=== PATIENT | female | born 1965 | race Caucasian/White ===

== ENCOUNTER 2019-10-20 07:10 | Inpatient (IN) | payer BC, OTHER ==
[~2019-10-20] VITALS: Ht 157.5 cm; Wt 49.7 kg
--- NOTE | 2019-10-20 07:30 | NUR ---
THIS IS A 54 YO F W/ C/O TIGHT CP SINCE 0100 THIS MORNING. PT STATES THAT SHE WAS LAYING DOWN WHEN IT BECAME SEVERE. CURRENTLY 04/30. C/O SOB AND NAUSEA. HX [place] 2 YEARS AGO. PTS RESPIRATIONS EVEN AND UNLABORED. NADN. EKG DONE AND GIVEN TO . HOOKED UP TO CARDIAC MONITORS. DENIES WEARING O2 AT HOME. CURRENTLY ON 4L 93%, HYPERTENSIVE. WILL CONTINUE TO MONITOR. CALL LIGHT IN REACH. DENIES FURTHER NEEDS AT THIS TIME.
--- NOTE | 2019-10-20 07:43 | NUR ---
SARA BENNETT IN ROOM FOR EVAL.
[2019-10-20] MEDS ORDERED: MORPHINE SULFATE 4 MG/ML, 1ML IVPush PRN (08:00)
[2019-10-20] MEDS ORDERED: SODIUM CHLORIDE FLUSH 10ML SYR IVF ONE (08:00)
[2019-10-20] MEDS ORDERED: ONDANSETRON 2MG/ML, 2ML IVPush ONE (08:00)
--- NOTE | 2019-10-20 08:05 | NUR ---
LAB AND RAD IN ROOM.
[2019-10-20 08:13] LABS: BASOPHILS # (AUTO) 0.04 x10^3/uL (0-0.1); BASOPHILS % (AUTO) 0 % (0-1); EOSINOPHILS # (AUTO) 0.25 x10^3/uL (0-0.4); EOSINOPHILS % (AUTO) 2 % (1-7); LYMPHOCYTES # (AUTO) 1.27 x10^3/uL (1-3.4); LYMPHOCYTES % (AUTO) 9 % (22-44); MD NO; MEAN CORPUSCULAR HEMOGLOBIN 30.5 pg (27.0-34.8); MEAN CORPUSCULAR HGB CONC 33.2 g/dL (32.4-35.8); MEAN CORPUSCULAR VOLUME 91.7 fL (80-100); MONOCYTES % (AUTO) 4 % (2-9); NEUTROPHILS # (AUTO) 11.85 x10^3/uL (1.8-6.8); NEUTROPHILS % (AUTO) 85 % (42-75); PLATELET COUNT 304 x10^3/uL (130-400); RED BLOOD COUNT 4.96 x10^6/uL (3.82-5.3); RED CELL DISTRIBUTION WIDTH 14.2 % (9.6-15.2)
[2019-10-20 08:25] LABS: ALANINE AMINOTRANSFERASE 15 U/L (12-78); ALBUMIN 3.3 g/dL (3.4-5.0); ANION GAP 7 mmol/L (5-15); CREATININE 0.87 mg/dL (0.55-1.02)
[2019-10-20] MEDS ORDERED: LORazepam 2 MG/ML, 1ML IVPush ONE (08:30)
[2019-10-20] MEDS ORDERED: ASPIRIN 81 MG TABLET CHEW PO ONE (08:30)
--- NOTE | 2019-10-20 08:34 | NUR ---
PT REFUSED PIV AFTER 1 ATTEMPT. AGREED TO US IV. TECH TO START US IV.
[2019-10-20 08:36] LABS: CHLORIDE 112 mmol/L (98-107)
[2019-10-20 08:38] LABS: ALKALINE PHOSPHATASE 180 U/L (45-117); BILIRUBIN,TOTAL 0.6 mg/dL (0.2-1.0); TOTAL PROTEIN 7.1 g/dL (6.4-8.2)
[2019-10-20 08:40] LABS: TROPONIN I 0.094 ng/mL (0.000-0.045)
--- NOTE | 2019-10-20 08:47 | NUR ---
HOLD ASPIRIN PER SARA BENNETT. PT RECEIVED 324 MG FROM [facility].
--- NOTE | 2019-10-20 08:56 | NUR ---
UNIT COORDINATOR IN ROOM FOR US IV.
[2019-10-20] MEDS ORDERED: MORPHINE SULFATE 4 MG/ML, 1ML ONE (09:02)
[2019-10-20] MEDS ORDERED: ONDANSETRON 2MG/ML, 2ML ONE (09:02)
--- NOTE | 2019-10-20 09:08 | NUR ---
PT MEDICATED PER EMAR. REFUSING ATIVAN AT THIS TIME.
--- NOTE | 2019-10-20 09:27 | NUR ---
PT UPDATED ON POC FOR ADMIT. PT WAITING TO HEAR BACK FROM [facility] TO POSTPONE EVICTION AND WILL DECIDE IF SHE WILL STAY OR NOT.
--- NOTE | 2019-10-20 09:51 | NUR ---
PT TO RAD
--- NOTE | 2019-10-20 10:12 | NUR ---
PT BACK FROM RAD
--- NOTE | 2019-10-20 10:35 | NUR ---
ALL TESTS RSEULTED. PT IS UP FOR RECHECK AT THIS TIME.
[2019-10-20] MEDS ORDERED: OMNIPAQUE 350 MG/ML, 100ML BOTTLE ONE (10:39)
[2019-10-20] MEDS ORDERED: ENOXAPARIN 40 MG/0.4 ML SQ SCH (11:30)
[2019-10-20] MEDS ORDERED: FUROSEMIDE 20 MG/2 ML IV ONE ×2 (11:30→17:30)
[2019-10-20] MEDS ORDERED: NITROGLYCERIN OINT 2%, 1GM TP ONE ×2 (11:30→11:38)
[2019-10-20] MEDS ORDERED: ACETAMINOPHEN 325 MG TABLET PO PRN (11:30)
[2019-10-20] MEDS ORDERED: ENOXAPARIN 40 MG/0.4 ML ONE (11:38)
[2019-10-20] MEDS ORDERED: FUROSEMIDE 40 MG/4 ML ONE (11:38)
--- NOTE | 2019-10-20 11:44 | NUR ---
PT MEDICATED PER EMAR. NITRO NOT GIVEN DUE TO NO CURRENT CHEST PAIN.
--- NOTE | 2019-10-20 11:50 | NUR ---
REPORT GIVEN TO JOHNATHAN GOLDBERG. PT READY FOR TRANSFER.
[2019-10-20] MEDS ORDERED: NITROGLYCERIN SINGLE TAB 0.4 MG SL PRN (12:00)
[2019-10-20] MEDS ORDERED: NICOTINE 14MG/24 HR PATCH.TD24 TD ONE (12:00)
[2019-10-20] MEDS ORDERED: hydrALAzine 20 MG/ML, 1ML IV PRN (12:00)
[2019-10-20 13:35] VITALS: BP_SYST 122; BP_SYST 146; BP_DIAS 75; BP_DIAS 82
[2019-10-20 17:11] LABS: TROPONIN I 0.286 ng/mL (0.000-0.045)
[2019-10-20] MEDS ORDERED: HEPARIN 25,000 UNITS/250ML PMX 250 ML IV PRN (17:30)
[2019-10-20] MEDS ORDERED: HEPARIN 5,000 UNITS/ML, 1ML IV PRN (17:30)
[2019-10-20] MEDS: CARVEDILOL 6.25 MG TABLET PO SCH (17:59)
[2019-10-20] MEDS: HEPARIN 5,000 UNITS/ML, 1ML IV ONE ×2 (17:59→20:08)
[2019-10-20] MEDS ORDERED: METOPROLOL TARTRATE 25 MG TABLET PO SCH (18:00)
[2019-10-20 19:28] VITALS: BP 111/63
[2019-10-20] MEDS ORDERED: LISINOPRIL 10 MG TABLET PO SCH (21:00)
[2019-10-20] MEDS ORDERED: ATORVASTATIN 40 MG TABLET PO SCH (21:00)
[2019-10-20 22:49] LABS: TROPONIN I 0.215 ng/mL (0.000-0.045)
[2019-10-21 01:01] VITALS: BP 117/58
[2019-10-21 02:44] LABS: BASOPHILS # (AUTO) 0.06 x10^3/uL (0-0.1); BASOPHILS % (AUTO) 1 % (0-1); EOSINOPHILS # (AUTO) 0.13 x10^3/uL (0-0.4); EOSINOPHILS % (AUTO) 2 % (1-7); LYMPHOCYTES # (AUTO) 1.52 x10^3/uL (1-3.4); LYMPHOCYTES % (AUTO) 21 % (22-44); MD NO; MEAN CORPUSCULAR HEMOGLOBIN 30.2 pg (27.0-34.8); MEAN CORPUSCULAR HGB CONC 32.8 g/dL (32.4-35.8); MEAN CORPUSCULAR VOLUME 91.9 fL (80-100); MEAN PLATELET VOLUME 8.6 fL (7.4-10.4); MONOCYTES # (AUTO) 0.48 x10^3/uL (0.2-0.8); MONOCYTES % (AUTO) 7 % (2-9); NEUTROPHILS # (AUTO) 5.08 x10^3/uL (1.8-6.8); NEUTROPHILS % (AUTO) 70 % (42-75); PLATELET COUNT 269 x10^3/uL (130-400); RED BLOOD COUNT 4.59 x10^6/uL (3.82-5.3); RED CELL DISTRIBUTION WIDTH 14.4 % (9.6-15.2)
[2019-10-21 02:49] LABS: ANION GAP 7 mmol/L (5-15); CALCIUM 8.2 mg/dL (8.5-10.1); CHLORIDE 104 mmol/L (98-107); CREATININE 1.11 mg/dL (0.55-1.02)
[2019-10-21] MEDS ORDERED: ASPIRIN 81 MG TABLET EC PO SCH (06:00)
[2019-10-21] MEDS: CARVEDILOL 6.25 MG TABLET PO SCH (06:07)
[2019-10-21 06:08] VITALS: BP 138/71
[2019-10-21 07:01] VITALS: BP 98/59
[2019-10-21] MEDS ORDERED: REGADENOSON 0.4 MG/5 ML SYRINGE ONE (08:37)
[2019-10-21] MEDS ORDERED: LORazepam 2 MG/ML, 1ML IVPush PRN (09:00)
== END 2019-10-21 11:54 | disposition left against medical advice (07) | DRG 291 ==
LOC: ED 10:27 → EDIP 11:25 → 5SO 12:01
PROVIDERS: ADMIT Internal Medicine Infectious Disease; ATTEND Hospitalist
DX: I11.0 Hypertensive heart disease with heart failure (principal); J96.01 Acute respiratory failure with hypoxia; I42.9 Cardiomyopathy, unspecified; I50.1 Left ventricular failure, unspecified; F15.90 Other stimulant use, unspecified, uncomplicated; F17.200 Nicotine dependence, unspecified, uncomplicated; R07.2 Precordial pain; Z53.29 Procedure and treatment not carried out because of patient's decision for other reasons; F41.1 Generalized anxiety disorder; J44.9 Chronic obstructive pulmonary disease, unspecified; Z82.49 Family history of ischemic heart disease and other diseases of the circulatory system; Z86.718 Personal history of other venous thrombosis and embolism; I25.2 Old myocardial infarction; Z91.19 Patient's noncompliance with other medical treatment and regimen
CPT/HCPCS: 36415; 71045; 71275; 78452; 80048; 80053; 83880; 84484; 85025; 85379; 85520; 93005; 93017; 93306; 93356; 96372; 96374; 96375; 99285; G0378; J1644; J1650; J2405; J2785; Q9967; A9502; J0360; J1940; J2060; J2270

== ENCOUNTER 2019-11-29 05:33 | Emergency (ER) | payer SELFPAY ==
[~2019-11-29] VITALS: Ht 157.5 cm; Wt 47.7 kg
--- NOTE | 2019-11-29 05:49 | NUR ---
Pt BIB [facility] for anxiety, left sided CP and SOB. Pt has had panic attack episodes similiar to this before and states that a medicine that helps anxiety also helps her CP. Pt has hx of GA's, CHF and asthma. Per paving supervisor, pt did not receive aspirin [employer] d/t almost choking on the tablets from anxiety. Pt on full monitors. Call light within reach.
[2019-11-29] MEDS ORDERED: ALBU5SOL6 INH (05:52)
--- NOTE | 2019-11-29 06:00 | NUR ---
Warm blanket and oral swabs provided.
--- NOTE | 2019-11-29 06:42 | NUR ---
Assist RN at bedside for US PIV placement.
--- NOTE | 2019-11-29 06:55 | NUR ---
Unable obtain PIV access with IV x2 attempts
--- NOTE | 2019-11-29 06:57 | NUR ---
RECEIVED REPORT FROM RICHARD GOLDBERG, PLAN OF CARE DISCUSSED
[2019-11-29] MEDS ORDERED: SODIUM CHLORIDE FLUSH 10ML SYR IVF ONE (07:00)
[2019-11-29] MEDS ORDERED: ALBUTEROL SULFATE 2.5 MG/3 ML ONE (07:33)
--- NOTE | 2019-11-29 07:40 | NUR ---
IV STARTED IN RIGHT AC BY TORRIE GOLDBERG, PLAN OF CARE DISCUSSED
--- NOTE | 2019-11-29 07:46 | NUR ---
RT IN ROOM GIVING A TREATMENT
[2019-11-29 07:57] LABS: BASOPHILS # (AUTO) 0.03 x10^3/uL (0-0.1); BASOPHILS % (AUTO) 0 % (0-1); EOSINOPHILS # (AUTO) 0.12 x10^3/uL (0-0.4); EOSINOPHILS % (AUTO) 2 % (1-7); LYMPHOCYTES # (AUTO) 1.07 x10^3/uL (1-3.4); LYMPHOCYTES % (AUTO) 14 % (22-44); MD NO; MEAN CORPUSCULAR HEMOGLOBIN 29.5 pg (27.0-34.8); MEAN CORPUSCULAR VOLUME 89.6 fL (80-100); MEAN PLATELET VOLUME 8.4 fL (7.4-10.4); MONOCYTES # (AUTO) 0.38 x10^3/uL (0.2-0.8); MONOCYTES % (AUTO) 5 % (2-9); NEUTROPHILS # (AUTO) 6.29 x10^3/uL (1.8-6.8); NEUTROPHILS % (AUTO) 80 % (42-75); PLATELET COUNT 213 x10^3/uL (130-400); RED BLOOD COUNT 4.53 x10^6/uL (3.82-5.3); RED CELL DISTRIBUTION WIDTH 13.2 % (9.6-15.2)
[2019-11-29] MEDS ORDERED: ALBUTEROL SULFATE 2.5 MG/3 ML NPPB ONE (08:00)
[2019-11-29 08:08] LABS: ALANINE AMINOTRANSFERASE 20 U/L (12-78); ALBUMIN 3.2 g/dL (3.4-5.0); ANION GAP 9 mmol/L (5-15); CALCIUM 7.9 mg/dL (8.5-10.1); CHLORIDE 113 mmol/L (98-107); CREATININE 0.83 mg/dL (0.55-1.02)
[2019-11-29 08:11] LABS: ALKALINE PHOSPHATASE 145 U/L (45-117); BILIRUBIN,TOTAL 0.7 mg/dL (0.2-1.0); TOTAL PROTEIN 6.7 g/dL (6.4-8.2)
[2019-11-29] MEDS ORDERED: LORazepam 2 MG/ML, 1ML IVPush ONE (08:30)
[2019-11-29] MEDS ORDERED: OMNIPAQUE 350 MG/ML, 100ML BOTTLE ONE (08:30)
[2019-11-29] MEDS ORDERED: LORazepam 2 MG/ML, 1ML ONE (08:32)
--- NOTE | 2019-11-29 09:08 | NUR ---
PT SLEEPING, RESP EVEN AND UNLABORED.
--- NOTE | 2019-11-29 09:51 | NUR ---
REPORT TO DIAN GOLDBERG, PLAN OF CARE DISCUSSED
--- NOTE | 2019-11-29 10:00 | NUR ---
REPORT FROM WANDY RN VSS ON [employer]ES SPECIAL AGENT ON 3L NC (ATIVAN?) PATRIZIA CP/MICHEL (REPORTS BREATHING TX EFFECTIVE. UPDATED ON POC-ADMIT. PATIENT REFUSING-PROVIDER TO SPEAK TO PATIENT
[2019-11-29 10:18] VITALS: BP 151/70
[2019-11-29] MEDS ORDERED: ASPIRIN 81 MG TABLET CHEW PO ONE (10:30)
--- NOTE | 2019-11-29 10:40 | NUR ---
PROVIDER WOULD LIKE TO ADMIT PATIENT FOR CARDIAC WORKUP PATIENT REFUSING AND IN A+OX4/UNDERSTANDS CONDITION-AMA PAPERWORK SIGNED
== END 2019-11-29 11:15 | disposition left against medical advice (07) ==
LOC: ED 10:16
DX: L03.012 Cellulitis of left finger (principal); R07.89 Other chest pain; R06.03 Acute respiratory distress; J90 Pleural effusion, not elsewhere classified; R79.89 Other specified abnormal findings of blood chemistry; J44.9 Chronic obstructive pulmonary disease, unspecified; I25.2 Old myocardial infarction
CPT/HCPCS: 36415; 71045; 71275; 80053; 83880; 84484; 85025; 93005; 94640; 96374; 99285; J2060; Q9967

== ENCOUNTER 2020-08-06 15:15 | Emergency (ER) | payer OTHER ==
[~2020-08-06] VITALS: Ht 157.5 cm; Wt 46.3 kg
[~2020-08-06 15:15] MED LIST: ALBU5SOL6 INH
[2020-08-06 15:25] VITALS: BP 191/108
--- NOTE | 2020-08-06 17:19 | NUR ---
N/A for XRAY x 2
--- NOTE | 2020-08-06 18:41 | NUR ---
NO ANSWER IN LOBBY
== END 2020-08-06 18:44 ==
LOC: ED 15:30
DX: R05 Cough (principal); R00.0 Tachycardia, unspecified; I49.3 Ventricular premature depolarization; I51.7 Cardiomegaly; R94.31 Abnormal electrocardiogram [ECG] [EKG]
CPT/HCPCS: 93005; 99283

== ENCOUNTER 2020-08-10 02:05 | Emergency (ER) | payer SELFPAY ==
[~2020-08-10] VITALS: Ht 157.5 cm; Wt 47.0 kg
[2020-08-10] MEDS ORDERED: SODIUM CHLORIDE FLUSH 10ML SYR IVF ONE (02:30)
[2020-08-10] MEDS ORDERED: NITROGLYCERIN OINT 2%, 1GM TP ONE ×2 (02:30→02:51)
[2020-08-10] MEDS ORDERED: methylPREDNISolone SOD SUCC 125 MG/2 ML IV ONE (02:30)
[2020-08-10] MEDS ORDERED: PLEASE ENTER HEIGHT AND WEIGHT MC SCH (02:30)
[2020-08-10] MEDS ORDERED: ALBUTEROL/IPRATROPIUM 2.5MG/0.5MG, 3 ML NPPB ONE (02:30)
--- NOTE | 2020-08-10 02:50 | NUR ---
PT BIB [facility] WITH HISTORY OF CHF, [place], COPD EXACERBATION. PT WITH HISTORY OF INTUBATION. PT HAVING LABORED BREATHING AND DIFFICULTY BREATHING TONIGHT. PT CHANGED INTO GOWN AND ATTACHED TO VS AND CARDIAC MONITORS. PT FOUND TO BE HYPERTENSIVE WITH OTHERWISE STABLE VS. PT EDUCATED ON ER PROCESS AND VERBALIZES UNDERSTANDING. CALL LIGHT IS WITHIN REACH OF PT AT THIS TIME.
[2020-08-10] MEDS ORDERED: methylPREDNISolone SOD SUCC 125 MG/2 ML ONE (02:51)
[2020-08-10] MEDS ORDERED: ALBUTEROL/IPRATROPIUM 2.5MG/0.5MG, 3 ML ONE (02:51)
[2020-08-10] MEDS ORDERED: FUROSEMIDE 40 MG/4 ML IV ONE (03:30)
[2020-08-10] MEDS ORDERED: FUROSEMIDE 20 MG/2 ML ONE (03:39)
[2020-08-10 04:10] LABS: BASOPHILS % (AUTO) 0 % (0-1); EOSINOPHILS % (AUTO) 4 % (1-7); LYMPHOCYTES % (AUTO) 15 % (22-44); MD NO; MEAN CORPUSCULAR HEMOGLOBIN 30.2 pg (27.0-34.8); MEAN CORPUSCULAR HGB CONC 33.1 g/dL (32.4-35.8); MEAN PLATELET VOLUME 8.6 fL (7.4-10.4); MONOCYTES % (AUTO) 7 % (2-9); NEUTROPHILS % (AUTO) 75 % (42-75); PLATELET COUNT 329 x10^3/uL (130-400); RED BLOOD COUNT 4.81 x10^6/uL (3.82-5.3); RED CELL DISTRIBUTION WIDTH 13.8 % (9.6-15.2)
--- NOTE | 2020-08-10 04:11 | NUR ---
PT AMBULATES TO RESTROOM AT THIS TIME. DR EDMOND AWARE OF PT INCREASING HTN DESPITE MEDICATION INTERVENTIONS. VERBAL ORDERS RECEIVED. PT SELF D/C IV AND ALL VS MONITORS AND EDUCATED ON NEED TO COOPERATE AND NOT PULL OF MONITORS. PT VERBALIZES UNDERSTANDING AT THIS TIME.
[2020-08-10 04:12] VITALS: BP 224/132
[2020-08-10 04:14] LABS: ALANINE AMINOTRANSFERASE 26 U/L (12-78); ALBUMIN 4.2 g/dL (3.4-5.0); ANION GAP 7 mmol/L (5-15); CHLORIDE 108 mmol/L (98-107); CREATININE 1.03 mg/dL (0.55-1.02)
[2020-08-10 04:18] LABS: ALKALINE PHOSPHATASE 168 U/L (45-117); BILIRUBIN,TOTAL 0.7 mg/dL (0.2-1.0); TOTAL PROTEIN 8.6 g/dL (6.4-8.2); TROPONIN I 0.069 ng/mL (0.000-0.045)
--- NOTE | 2020-08-10 04:25 | NUR ---
PT EDUCATED ON NEED TO STAY IN ROOM TO BE SEEN BY ERP. PT KEEPS TAKING EQUIPMENT OFF AND SAYING "MY RIDE IS HERE I HAVE TO GO". PT EDUCATED ON NEED TO STAY IN ROOM TO DISCUSS PLAN OF CARE WITH DR. PT VERBALIZES UNDERSTANDING AT THIS TIME.
--- NOTE | 2020-08-10 04:37 | NUR ---
PT WALKED OUT OF THE HOSPITAL AMBULANCE BY AND LEFT WITHOUT D/C PAPERS. DR EDMOND NOTIFIED OF PT ELOPEMENT. PT LEFT WITH PIV D/C'ED PRIOR TO ELOPEMENT. PROVIDER AWARE OF PT UNSTABLE VITAL SIGNS PRIOR TO ELOPEMENT.
== END 2020-08-10 04:50 | disposition left against medical advice (07) ==
LOC: ED 03:44
DX: J44.1 Chronic obstructive pulmonary disease with (acute) exacerbation (principal); J96.01 Acute respiratory failure with hypoxia; I25.2 Old myocardial infarction; I50.9 Heart failure, unspecified; I11.0 Hypertensive heart disease with heart failure; R05 Cough; Z72.9 Problem related to lifestyle, unspecified
CPT/HCPCS: 36415; 71045; 80053; 83880; 84484; 85025; 93005; 94640; 96374; 96375; 99285; J1940; J2930

== ENCOUNTER 2021-05-20 01:04 | Emergency (ER) | payer OTHER ==
[~2021-05-20] VITALS: Ht 157.5 cm; Wt 50.0 kg
[2021-05-20] MEDS ORDERED: MORPHINE SULFATE 4 MG/ML, 1ML IVPush ONE (01:30)
[2021-05-20] MEDS ORDERED: ONDANSETRON 2MG/ML, 2ML IVPush ONE (01:30)
[2021-05-20] MEDS ORDERED: ONDANSETRON 2MG/ML, 2ML ONE (01:36)
[2021-05-20] MEDS ORDERED: MORPHINE SULFATE 4 MG/ML, 1ML ONE (01:36)
--- NOTE | 2021-05-20 02:00 | NUR ---
PATIENT IS REFUSING LABS AT THIS TIME. ATTEMPTED TO START IV. PATIENT IS REFUSING IV OTHER THAN ULTRASOUND IV. PATIENT EXPLAINED CRITERIA, NO EVIDENCE OF LEARNING EXHIBITED. IV WILL BE PLACED FOR CT, LABS, AND MEDICATION DOSAGE.
--- NOTE | 2021-05-20 02:24 | NUR ---
BREAK RN; PIV PLACED LABS DRAWN AND SENT MEDICATED FOR PAIN
[2021-05-20 02:32] LABS: BASOPHILS % (AUTO) 1 % (0-1); EOSINOPHILS % (AUTO) 1 % (1-7); LYMPHOCYTES % (AUTO) 9 % (22-44); MEAN CORPUSCULAR HEMOGLOBIN 27.1 pg (27.0-34.8); MEAN PLATELET VOLUME 7.3 fL (7.4-10.4); MONOCYTES % (AUTO) 7 % (2-9); NEUTROPHILS % (AUTO) 83 % (42-75); PLATELET COUNT 446 x10^3/uL (130-400); RED BLOOD COUNT 3.73 x10^6/uL (3.82-5.3); RED CELL DISTRIBUTION WIDTH 14.7 % (9.6-15.2)
[2021-05-20 02:46] LABS: ALANINE AMINOTRANSFERASE 12 U/L (12-78); ALBUMIN 2.2 g/dL (3.4-5.0); ANION GAP 8 mmol/L (5-15); CALCIUM 8.3 mg/dL (8.5-10.1); CHLORIDE 100 mmol/L (98-107); CREATININE 0.92 mg/dL (0.55-1.02)
[2021-05-20 02:48] LABS: ALKALINE PHOSPHATASE 183 U/L (45-117); BILIRUBIN,TOTAL 0.5 mg/dL (0.2-1.0); TOTAL PROTEIN 6.9 g/dL (6.4-8.2)
--- NOTE | 2021-05-20 03:00 | NUR ---
PATIENT RESTING IN BED, NO NOTED NEEDS AT THIS TIME. EVEN-UNLABORED RESPIRATIONS NOTED. VSS, WILL CONTINUE TO MONITOR.
[2021-05-20] MEDS ORDERED: OMNIPAQUE 350 MG/ML, 100ML BOTTLE ONE (03:07)
[2021-05-20 03:52] LABS: MICROSCOPIC AUTO
--- NOTE | 2021-05-20 04:00 | NUR ---
PATIENT RESTING IN BED, NO NOTED NEEDS AT THIS TIME. EVEN-UNLABORED RESPIRATIONS NOTED. VSS, WILL CONTINUE TO MONITOR.
[2021-05-20] MEDS ORDERED: CEFTRIAXONE 1,000 MG in DEXTROSE 5% 50 ML IVPB ONE (04:30)
--- NOTE | 2021-05-20 04:40 | NUR ---
ATTEMPTING TO OBTAIN RECORDS FROM OUTSIDE FACILITY. PATIENT STATED THAT SHE HAS BEEN TO ANOTHER HOSPITAL AND DIAGNOSISED WITH STOMACH CANCER. CAN NOT PROVIDE ANY DOCUMENTATION OF SAID DISAGNOSIS.
--- NOTE | 2021-05-20 05:06 | NUR ---
PATIENT RESTING IN BED, NO NOTED NEEDS AT THIS TIME. EVEN-UNLABORED RESPIRATIONS NOTED. VSS, WILL CONTINUE TO MONITOR.
[2021-05-20 06:12] VITALS: BP 138/74
== END 2021-05-20 06:15 | disposition home or self-care (01) ==
LOC: ED 02:55
DX: N30.01 Acute cystitis with hematuria (principal); C18.9 Malignant neoplasm of colon, unspecified; R00.0 Tachycardia, unspecified; Z72.9 Problem related to lifestyle, unspecified; F17.210 Nicotine dependence, cigarettes, uncomplicated; I11.0 Hypertensive heart disease with heart failure; I50.9 Heart failure, unspecified
CPT/HCPCS: 36415; 71045; 74177; 80053; 81001; 85025; 87077; 87086; 87186; 93005; 96365; 96375; 99285; 99406; J0696; J2270; J2405; Q9967

== ENCOUNTER 2021-06-11 01:19 | Inpatient (IN) | payer OTHER ==
[~2021-06-11] VITALS: Ht 157.5 cm; Wt 45.9 kg
[2021-06-11] MEDS ORDERED: ONDANSETRON 2MG/ML, 2ML ONE ×2 (01:59→08:49)
[2021-06-11] MEDS ORDERED: MORPHINE SULFATE 4 MG/ML, 1ML ONE (01:59)
[2021-06-11] MEDS ORDERED: SODIUM CHLORIDE FLUSH 10ML SYR IVF ONE (02:00)
[2021-06-11] MEDS ORDERED: MORPHINE SULFATE 4 MG/ML, 1ML IVPush ONE (02:00)
[2021-06-11] MEDS ORDERED: SODIUM CHLORIDE 0.9% 1,000ML IVBOLUS ONE (02:00)
[2021-06-11] MEDS ORDERED: ONDANSETRON 2MG/ML, 2ML IVPush ONE (02:00)
[2021-06-11 03:02] LABS: BASOPHILS % (AUTO) 1 % (0-1); EOSINOPHILS % (AUTO) 6 % (1-7); LYMPHOCYTES % (AUTO) 14 % (22-44); MEAN CORPUSCULAR HEMOGLOBIN 26.5 pg (27.0-34.8); MEAN CORPUSCULAR HGB CONC 33.2 g/dL (32.4-35.8); MEAN PLATELET VOLUME 7.7 fL (7.4-10.4); MONOCYTES % (AUTO) 7 % (2-9); NEUTROPHILS % (AUTO) 72 % (42-75); PLATELET COUNT 343 x10^3/uL (130-400); RED CELL DISTRIBUTION WIDTH 15.1 % (9.6-15.2)
[2021-06-11 03:13] LABS: ALANINE AMINOTRANSFERASE 9 U/L (12-78); ALBUMIN 2.6 g/dL (3.4-5.0); ANION GAP 9 mmol/L (5-15); CALCIUM 7.8 mg/dL (8.5-10.1); CHLORIDE 104 mmol/L (98-107)
[2021-06-11 03:18] LABS: ALKALINE PHOSPHATASE 178 U/L (45-117); BILIRUBIN,TOTAL 0.4 mg/dL (0.2-1.0); TOTAL PROTEIN 6.9 g/dL (6.4-8.2)
[2021-06-11] MEDS ORDERED: ALBUTEROL/IPRATROPIUM 2.5MG/0.5MG, 3 ML ONE (05:39)
[2021-06-11] MEDS ORDERED: methylPREDNISolone SOD SUCC 125 MG/2 ML ONE (05:39)
[2021-06-11] MEDS ORDERED: ALBUTEROL/IPRATROPIUM 2.5MG/0.5MG, 3 ML NPPB ONE (06:00)
[2021-06-11] MEDS ORDERED: OMNIPAQUE 350 MG/ML, 100ML BOTTLE ONE (06:18)
[2021-06-11] MEDS ORDERED: methylPREDNISolone SOD SUCC 125 MG/2 ML IV ONE (06:30)
[2021-06-11] MEDS: LACTATED RINGERS 1,000 ML IV SCH (08:30)
[2021-06-11] MEDS ORDERED: MELATONIN 5 MG TABLET PO PRN (08:30)
[2021-06-11] MEDS ORDERED: hydrALAzine 20 MG/ML, 1ML IV ONE (08:30)
[2021-06-11] MEDS ORDERED: ONDANSETRON 2MG/ML, 2ML IVPush PRN (08:30)
[2021-06-11] MEDS ORDERED: ENALAPRILAT 1.25 MG/ML, 2ML IVPush PRN (08:30)
[2021-06-11] MEDS ORDERED: HYDROmorphone 2 MG/ML, 1ML IVPush PRN (08:30)
[2021-06-11] MEDS ORDERED: HYDROcodone/APAP 5/325 TABLET PO PRN (08:30)
[2021-06-11] MEDS ORDERED: HYDROmorphone 2 MG/ML, 1ML ONE (08:48)
[2021-06-11] MEDS ORDERED: hydrALAzine 20 MG/ML, 1ML ONE (09:09)
--- NOTE | 2021-06-11 09:49 | NUR ---
RECEIVED REPORT AND ASSUMED CARE. PT.'S IV SITE IS NOT WORKING. PT.'S IV WAS DCD, CATH TIP INTACT. PRESSURE HELD WITH HEMOSTASIS ACHIEVED. A NEW IV SITE WAS ESTABLISHED AND PT.'S LR IS INFUSING ON THE PUMP. ASSESSMENT DONE. PT. REMAINS MONITORED WITH THE SIDERAILS UP X [address] AND THE CALL LIGHT IN PLACE.
[2021-06-11] MEDS ORDERED: GOLYTELY 4,000ML ORAL.SOL PO ONE (10:00)
[2021-06-11] MEDS ORDERED: LORazepam 2 MG/ML, 1ML ONE ×2 (10:52→11:23)
[2021-06-11] MEDS ORDERED: LORazepam 2 MG/ML, 1ML IVPush ONE (11:00)
--- NOTE | 2021-06-11 11:27 | NUR ---
PT. IS RESTLESS, TWITCHING AND KICKING. PT. PULLED OUR HER IV. MULTIPLE ATTEMPTS TO RESTART HER IV, PT. HAS A HX OF IV DRUG USE AND REPORTS LAST USE OF METH YESTERDAY MORNING. YUSUF OLSEN PLACED AN 18G IV IN HER CLEMENTE. PT. WAS MEDICATED FOR ANXIETY AND METH USE ORDERED. VSS.
--- NOTE | 2021-06-11 13:25 | NUR ---
PT. IS CALM AT THIS TIME. VSS. PT. REMAINS MONITORED. PT. VOMITED HER GO-JOANN AND WILL NOT DRINK IT. NO OTHER CONCERNS.
--- NOTE | 2021-06-11 14:30 | NUR ---
PT. PULLED HER 18G IV FROM HER LFA. ATTEMPED EJ INSERTION, HOWEVER THE PT. IS UNCOOPERATIVE. REPORT TO NELSON GOLDBERG.
--- NOTE | 2021-06-11 16:53 | NUR ---
PT SLEEPING ON HOSPITAL W/ SIDE RAILS UPX2 AND CALL LIGHT IN REACH. AWAITING IR.
--- NOTE | 2021-06-11 17:14 | NUR ---
PT TO IR.
--- NOTE | 2021-06-11 18:37 | NUR ---
PT RESTING ON HOSPITAL BED W/ CALL LIGHT IN REACH AND SIDE RAILS UPX2. RESP EVEN AND UNLABORED, KHAI.
[2021-06-11 20:51] VITALS: BP 133/66
[2021-06-11 21:02] VITALS: BP 133/66
[2021-06-12] MEDS: LACTATED RINGERS 1,000 ML IV SCH ×3 (01:37→21:30)
[2021-06-12 03:55] VITALS: BP 175/86
[2021-06-12] MEDS ORDERED: LISINOPRIL 10 MG TABLET ONE (04:07)
[2021-06-12 06:14] LABS: BASOPHILS % (AUTO) 0 % (0-1); EOSINOPHILS % (AUTO) 0 % (1-7); LYMPHOCYTES % (AUTO) 7 % (22-44); MEAN CORPUSCULAR HEMOGLOBIN 25.8 pg (27.0-34.8); MEAN CORPUSCULAR HGB CONC 32.2 g/dL (32.4-35.8); MEAN PLATELET VOLUME 7.5 fL (7.4-10.4); MONOCYTES % (AUTO) 6 % (2-9); NEUTROPHILS % (AUTO) 87 % (42-75); PLATELET COUNT 438 x10^3/uL (130-400); RED BLOOD COUNT 3.67 x10^6/uL (3.82-5.3)
[2021-06-12 06:22] LABS: ALANINE AMINOTRANSFERASE 14 U/L (12-78); ALBUMIN 2.4 g/dL (3.4-5.0); ANION GAP 6 mmol/L (5-15); CALCIUM 8.7 mg/dL (8.5-10.1); CHLORIDE 105 mmol/L (98-107); CREATININE 0.84 mg/dL (0.55-1.02)
[2021-06-12 06:24] LABS: ALKALINE PHOSPHATASE 178 U/L (45-117); BILIRUBIN,TOTAL 0.3 mg/dL (0.2-1.0); TOTAL PROTEIN 6.7 g/dL (6.4-8.2)
[2021-06-12 06:53] VITALS: BP 177/93
[2021-06-12] MEDS ORDERED: LISINOPRIL 10 MG TABLET PO ONE (07:00)
[2021-06-12] MEDS ORDERED: LORazepam 2 MG/ML, 1ML IVPush ONE (09:00)
[2021-06-12] MEDS ORDERED: LISINOPRIL 10 MG TABLET PO SCH (09:00)
[2021-06-12 13:00] VITALS: BP 166/84
[2021-06-12 14:16] VITALS: BP 142/71
[2021-06-12 19:14] VITALS: BP 164/84
[2021-06-13 00:39] VITALS: BP 153/75
[2021-06-13] MEDS ORDERED: LISINOPRIL 20 MG TABLET PO SCH (09:00)
== END 2021-06-13 09:05 | disposition left against medical advice (07) | DRG 206 ==
LOC: ED 02:01 → EDIP 08:05 → 4NW 20:50
PROVIDERS: ADMIT Hospitalist; ATTEND Hospitalist
PROC: 02HV33Z Insertion of Infusion Device into Superior Vena Cava, Percutaneous Approach (ICD-10-PCS; principal; 2021-06-11)
PROC: B518ZZA Fluoroscopy of Superior Vena Cava, Guidance (ICD-10-PCS; 2021-06-11)
PROC: B548ZZA Ultrasonography of Superior Vena Cava, Guidance (ICD-10-PCS; 2021-06-11)
DX: R91.1 Solitary pulmonary nodule (principal); C18.9 Malignant neoplasm of colon, unspecified; I50.20 Unspecified systolic (congestive) heart failure; J44.1 Chronic obstructive pulmonary disease with (acute) exacerbation; E27.9 Disorder of adrenal gland, unspecified; D50.9 Iron deficiency anemia, unspecified; F10.10 Alcohol abuse, uncomplicated; F15.90 Other stimulant use, unspecified, uncomplicated; F17.210 Nicotine dependence, cigarettes, uncomplicated; F41.1 Generalized anxiety disorder; I11.0 Hypertensive heart disease with heart failure; I25.10 Atherosclerotic heart disease of native coronary artery without angina pectoris; Z20.822 Contact with and (suspected) exposure to COVID-19; F19.10 Other psychoactive substance abuse, uncomplicated
CPT/HCPCS: 36415; 36573; 71045; 71275; 74177; 80053; 83735; 83880; 84100; 85025; 93005; 96374; 96375; 99406; G0378; J2405; Q9967; U0005; C1751; J0360; J2060; J2270; J2930; J7120; U0003